=== PATIENT | female | born 1960 | race Caucasian/White ===

== ENCOUNTER 2018-11-29 05:20 | Observation (INO) ==
--- NOTE | 2018-11-22 08:33 | Anesthesiology Consultation ---
Date of Service November 22, 2018 Assessment & Plan (1) Encounter for pre-operative examination: Cardiology clearance 10/18/2018: "Breast reduction surgery is planned. Her functional level is excellent... There is no contraindication for electrocautery from a cardiac standpoint. Recommend to use on maintaining a 6 inch distance or more between the electrocautery tip with a grounding pad in the pacemaker site. Please limit the application of electrocautery from 1-2 seconds every 10 seconds. Or the pacemaker can be programmed appropriately before and after the surgical procedure by the [employer] customer field representative. Does not has a history of paroxysmal supraventricular tachycardia. Status post ablation for PSVT in 2009. Comp located by complete AV block and is device dependent." OR made aware of [employer] pacer and need for pacer rep AM DOS. *POSSIBLE DIFFICULT INTUBATION DUE TO SMALL ORAL OPENING* Chart Review Chart Review: Acceptable Risk for Surgery and Patient seen in Pre Admission Testing Teaching & Discussion Instructed NPO after midnight before surgery, except medications with 15 cc of water. Medication instructions provided according to the PAT guidelines. History Surgery Operation Date: 11/29/18 07:30 Proposed Procedures p Bilateral Reduction Mammoplasty; - Loan Ray MD s Abdominoplasty - Loan Ray MD Height/Weight Height: 5 ft 6 in Weight: 83.9 kg Allergies Allergy/AdvReac Type Severity Reaction Status Date / Time erythromycin base Allergy Unknown "EYE Verified 11/17/18 10:22 OINTMENT ONLY" - REDNESS AND SWELLING OF EYE latex Allergy Unknown CONTACT Verified 11/17/18 10:22 REACTION - SKIN REDNESS AND RASH Medications Home Medications Medication Instructions Recorded Confirmed Last Taken Collagen 1 tab PO DAILY 11/17/18 11/17/18 Unknown Muscle Relaxer 1 dose PO UD PRN 11/17/18 11/17/18 Unknown Zicam 1 dose UD PRN 11/17/18 11/17/18 Unknown cholecalciferol (vitamin D3) 1,000 unit PO QAM 11/17/18 11/17/18 11/17/18 [Vitamin D3] duloxetine 30 mg PO HS 11/17/18 11/17/18 11/16/18 ferrous sulfate [iron] 325 mg PO QAM 11/17/18 11/17/18 11/17/18 folic acid 1 mg PO QAM 11/17/18 11/17/18 11/17/18 lisinopril 5 mg PO QAM 11/17/18 11/17/18 11/17/18 meloxicam 15 mg PO QAM 11/17/18 11/17/18 11/17/18 omeprazole 20 mg PO QAM 11/17/18 11/17/18 11/17/18 Past Medical History Medical History Esophageal stricture S/P DILATION 2017 GERD (gastroesophageal reflux disease) History of high cholesterol History of pacemaker IMPLANTED 2009- DUAL CHAMBER, [employer] 2/2 COMPLETE HEART BLOCK PER CARDIO; LAST PACER CHECK= 09/07/18 History of skin cancer Hx of supraventricular tachycardia 2010 S/P ABLATION 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 Brother Family history of kidney cancer Past Surgical History Surgical History History of bilateral cataract extraction History of cardiac cath 2009= NO STENTS History of cardiac radiofrequency ablation 2/2 SVT (2009) -- CAUSED COMPLETE HEART BLOCK AND SUBSEQUENT PPM IMPLANTED ONE WEEK LATER History of colonoscopy History of dilation and curettage MULTIPLE History of hysterectomy History of laparoscopy 2/2 ECTOPIC History of pacemaker 2009 2/2 COMPLETE HEART BLOCK History of tonsillectomy and adenoidectomy Nausea and vomiting after administration of anesthetic agent Past Anesthesia History No Hx of Anesthesia Complications and No Family Hx of Anesthesia Complications "Slow to wake up/always the last one to leave same-day surgery" No h/o reintubation or unanticipated admission. History of PONV Yes (Has not had with more recent surgeries) Motion Sickness Screening History of Motion Sickness: No Social History Smoking Status: Former smoker tobacco type: cigarettes Do You Dip or Chew Tobacco: No Smoking End Date: HX SOCIAL SMOKING Hx Alcohol Use: Yes Alcohol type: hard liquor alcohol intake frequency: holidays/special occasions only Hx Substance Use: No substance use type: does not use Exercise / Class Metabolic Activity II 4-5 Yardwork/Stairs/Walk up hill (denies CP or SOB with stairs) Review of Systems Pt denies any recent chest pain, shortness of breath, palpitations, cough, fever or URI. "Just getting over a cold," no fever, treating with OTC cold meds. Physical Exam Vital Signs BP: 128/82 P: 76bpm SPO2: 99% RA T: 98.5 F R: 12 ENMT Mouth: + dental bridge (upper), + dental restorations (few caps on molars) and + small oral opening; no chipped teeth and no loose teeth Thyromental Distance: < 3.5 Finger Breadths (3) Mallampati Class: II Neck normal visual inspection and + limited neck extension (mildly) Respiratory normal respiratory effort Auscultation: lungs clear to auscultation bilaterally Cardiovascular Rate/Rhythm: regular rate and regular rhythm Heart Sounds: no murmur Vessels: no carotid bruit Extremities: no edema Testing Electrocardiogram Date: 11/06/18 Atrial sensed ventricular paced rhythm at 70 bpm with prolonged AV conduction. Stress Test Date: 11/14/12 Resting EF: 60-64% Stress echocardiogram is negative for inducible ischemia. Uninterpretable stress EKG due to repolarization changes of ventricular pacemaker. Functional capacity of 7.7 METS. Adequate cardiovascular stress. Normal blood pressure and heart rate response to exercise. Grade 1 diastolic dysfunction. Left atrium is normal size. Qualitative LVEF is normal. No LV segmental wall motion normalities. Other Testing Pacer Check 09/07/18 [employer]. Implanted 02/13/10, generator change 07/01/16. Longevity remainin years Mode: DDDR Pacin.8% Ventricular paced. Laboratory Results 11/22/18 09:24 11/22/18 09:24 PT 10.0 Seconds (9.0-12.0) 11/22/18 09:24 INR 1.0 (0.9-1.1) 11/22/18 09:24 APTT 26.6 Seconds (21.0-31.0) 11/22/18 09:24 *surgeon made aware of low WBC count
--- NOTE | 2018-11-22 08:55 | PAT Medication Instructions ---
Medication Instructions Date of Service November 22, 2018 Home Medications Collagen 1 tab PO DAILY Muscle Relaxer 1 dose PO UD PRN Zicam 1 dose UD PRN cholecalciferol (vitamin D3) 1,000 unit PO QAM duloxetine 30 mg PO HS ferrous sulfate [iron] 325 mg PO QAM folic acid 1 mg PO QAM lisinopril 5 mg PO QAM meloxicam 15 mg PO QAM omeprazole 20 mg PO QAM Restasis Eye Drops 1 gtt BID STOP taking 2 weeks before surgery Collagen 1 tab PO DAILY If surgery is within 2 weeks, stop taking as soon as possible. DO NOT take the morning of surgery Zicam 1 dose UD PRN cholecalciferol (vitamin D3) 1,000 unit PO QAM ferrous sulfate [iron] 325 mg PO QAM folic acid 1 mg PO QAM lisinopril 5 mg PO QAM Take morning of surgery With a small sip of water, OTHERWISE NOTHING TO EAT OR DRINK AFTER MIDNIGHT: omeprazole 20 mg PO QAM Restasis Eye Drops 1 gtt BID Take evening before surgery Zicam 1 dose UD PRN (if needed) duloxetine 30 mg PO HS Muscle Relaxer 1 dose PO UD PRN (if needed) Restasis Eye Drops 1 gtt BID Other Notes If you have any questions please call us at [phone] or [phone] or [phone] or [phone]
[2018-11-22 11:06] LABS: Basophils # (auto) 0.01 K/uL (0-0.2); Basophils % (auto) 0.3 %; Eosinophils # (auto) 0.13 K/uL (0-0.5); Eosinophils % (auto) 4.3 %; Hematocrit (blood only) 39.5 % (37-47); Immature Granulocytes # (auto) 0.01 K/uL (0.00-0.02); Immature Granulocytes % (auto) 0.3 %; Lymphocytes # (auto) 1.12 K/uL (1.2-3.4); Lymphocytes % (auto) 37.1 %; Mean Corpuscular Hgb Conc 32.9 g/dL (32-36); Mean Corpuscular Volume 90.4 fL (80-100); Monocytes # (auto) 0.21 K/uL (0.11-0.59); Neutrophils # (auto) 1.54 K/uL (1.4-6.5); Platelet Count 235 K/uL (130-400); RDW Coefficient of Variation 13.3 % (11.5-14.5); RDW Standard Deviation 44.1 fL (36.4-46.3); Red Blood Count 4.37 M/uL (4.2-5.4); White Blood Count 3.02 K/uL (4.8-10.8)
[2018-11-22 11:18] LABS: BUN Creatinine Ratio 15.5 (10-20); Calcium 8.9 mg/dl (8.5-10.1); Creatinine Clr Calc Pharmacy 64.4 ml/min; Est GFR (African American) 68.6; Est GFR (Non-African American) 59.2; Potassium 4.3 mmol/L (3.5-5.1)
[2018-11-22 11:20] LABS: Partial Thromboplastin Time 26.6 Seconds (21.0-31.0)
[2018-11-29] MEDS ORDERED: LR 15ML/HR IV SCH (06:00)
[2018-11-29] MEDS ORDERED: CEFAZOLIN 2000MG 2,000 MG/15 ML SYR IV SCH (06:00)
[2018-11-29] MEDS ORDERED: CISATRACURIUM BESYLATE IV SOLN 2 MG/ML 10 ML VIAL IV ONE (06:35)
[2018-11-29] MEDS ORDERED: DEXAMETHASONE SOD INJ 4 MG/ML VIAL ONE (06:35)
[2018-11-29] MEDS ORDERED: fentaNYL citrate 100 MCG/2 ML VIAL ONE ×5 (06:35→14:12)
[2018-11-29] MEDS ORDERED: ONDANSETRON INJ 2 MG/ML 2 ML VIAL ONE (06:35)
[2018-11-29] MEDS ORDERED: MIDAZOLAM HCL 1 MG/ML 2ML VIAL ONE (06:35)
[2018-11-29] MEDS ORDERED: ROCURONIUM BROMIDE 10 MG/ML 5 ML VIAL ONE (06:35)
[2018-11-29] MEDS ORDERED: HYDROmorphone INJ 2 MG/ML SYR/VIAL ONE (06:35)
[2018-11-29] MEDS ORDERED: GLYCOPYRROLATE 0.2 MG/ML VIAL ONE (06:35)
[2018-11-29] MEDS ORDERED: SUCCINYLCHOLINE CHLORIDE 20 MG/ML 10 ML VIAL ONE (06:35)
[2018-11-29] MEDS ORDERED: NEOSTIGMINE METHYLSULFATE 5 MG/5 ML SYR ONE (06:35)
[2018-11-29] MEDS ORDERED: LIDOCAINE HCL 2% 2 ML VIAL/AMP(20MG/ML) INFIL ONE (06:35)
[2018-11-29] MEDS ORDERED: ATROPINE SULFATE 0.1 MG/ML 10ML SYR IV PRN (06:36)
[2018-11-29] MEDS ORDERED: fentaNYL citrate 100 MCG/2 ML VIAL IV PRN (06:36)
[2018-11-29] MEDS ORDERED: PROMETHAZINE HCL 12.5 MG in SODIUM CHLORIDE 0.9% 50 ML IV PRN ×2 (06:36→16:01)
[2018-11-29] MEDS ORDERED: HYDROmorphone INJ 1 MG/ML SYRINGE IV PRN (06:36)
[2018-11-29] MEDS ORDERED: ePHEDrine sulfate 50 MG/ML AMP IV PRN (06:36)
[2018-11-29] MEDS ORDERED: ONDANSETRON INJ 2 MG/ML 2 ML VIAL IV PRN ×2 (06:36→16:01)
[2018-11-29] MEDS ORDERED: PHENYLEPHRINE 100MCG/ML 5ML SYR IV PRN (06:36)
[2018-11-29] MEDS ORDERED: ACETAMINOPHEN 1000 MG/100 ML IV IV ONE (06:47)
--- NOTE | 2018-11-29 07:04 | History & Physical Bridge Note ---
Date of Service November 29, 2018 History & Physical Bridge Note I have examined the patient, reviewed the History & Physical and in the interval since the performance of the History & Physical I have noted the following changes of clinical significance: recent vitreal detachment
[2018-11-29] MEDS ORDERED: EPINEPHrine INJ 1 MG/ML AMP ONE (07:11)
[2018-11-29] MEDS ORDERED: BUPIVACAINE 0.25% 30 ML VIAL ONE ×2 (07:12→09:32)
[2018-11-29] MEDS ORDERED: LIDOCAINE/EPINEPHRINE 1% 20 ML VIAL ONE ×2 (07:12→09:32)
[2018-11-29] MEDS ORDERED: LIDOCAINE HCL 1% 20 ML VIAL ONE (07:12)
[2018-11-29] MEDS ORDERED: KETAMINE HCL INJ 50 MG/ML 10 ML VIAL ONE (07:50)
[2018-11-29] MEDS ORDERED: PROPOFOL IV EMULSION 10 MG/ML 20 ML VIAL IV ONE ×2 (08:47→13:18)
[2018-11-29] MEDS ORDERED: CEFAZOLIN 2000MG 2,000 MG/15 ML SYR IV ONE (11:50)
--- NOTE | 2018-11-29 13:40 | Post Operative Brief Note ---
Immediate Post Op Note v1 Date of Surgery November 29, 2018 Pre & Post Diagnosis Operation Date: 11/29/18 07:30 Pre-Op Diagnosis: Symptomatic Bilateral Macromastia, Abdominal Pannus Post-Op Diagnosis: Symptomatic Bilateral Macromastia, Abdominal Pannus Procedure Operation Date: 11/29/18 07:30 Actual Procedures p Bilateral Reduction Mammoplasty;(Bilateral) - Loan Ray MD s Abdominoplasty(Not Applicable) - Loan Ray MD Surgeon Loan Ray MD Opera Singer Pippa Bradley PA-C Estimated Blood Loss 100 Findings Consistent with Post-Op Diagnosis Drains Becerril Catheter (LATEX FREE; 16 chadian 10 ml balloon) and Dusty-Garcia Drain (15 chadian round x4)
--- NOTE | 2018-11-29 14:31 | Operative Report ---
Post Operative Report Pre & Post Diagnosis Operation Date: 11/29/18 07:30 Pre-Op Diagnosis: Symptomatic Bilateral Macromastia, Abdominal Pannus Post-Op Diagnosis: Symptomatic Bilateral Macromastia, Abdominal Pannus Procedure Operation Date: 11/29/18 07:30 Actual Procedures p Bilateral Reduction Mammoplasty;(Bilateral) - Loan Ray MD s Abdominoplasty(Not Applicable) - Loan Ray MD Surgeon Loan Ray MD Concession Attendant Pippa Bradley PA-C Estimated Blood Loss 100 Findings Consistent with Post-Op Diagnosis Specimens left breast 637 g, right breast 637 g Drains NEFTALY x2 Anesthesia Type General Complications none Indications back, neck and shoulder pain, intertrigo due to macromastia desire for cosmetic abdominoplasty Description of Procedure The risks, benefits, and alternatives of the procedure were explained to the patient who agreed and signed consent. She was identified and marked in the preoperative holding area. She had no specific desire for a particular breast size following the procedure. She was brought to the operating room where she was positioned supine and placed under general anesthesia without incident. Becerril catheter was placed. SCDs were placed. Surgical site was prepped and draped sterilely. A time-out procedure was performed. I began with the left side. Markings were reassessed and a 7 cm pedicle was marked. 1% lidocaine with epinephrine was used to anesthetize the planned incisions. A 38 mm cookie cutter was used to circumscribe the nipple-areolar complex. The previously marked 7 cm pedicle was incised using a 15 blade scalpel and deepithelized. I began with the medial dissection of the pedicle using Peak Plasmablade. Cautery was used to incise through dermis and breast parenchyma down to the chest wall, taking care not to undermine the pedicle during dissection. A similar procedure was undertaken on the lateral aspect of the pedicle again taking care not to undermine. Lastly, the pedicle was dissected out superiorly using Peak Plasmablade and this was carried down to the chest wall as well. I then began with excision of the medial breast tissue followed by lateral aspect of the breast tissue and surrounding keyhole incision. A 15 blade scalpel was used to make the inframammary fold incision and Peak Plasmablade was used to deepen the incision through dermis and breast parenchyma. Dissection was then carried superiorly to the level of the superior incision. Superior incision was then incised using a 15 blade scalpel and again dissected using Peak Plasmablade. This was undertaken laterally and then around the keyhole portion of the incision. Care was taken to leave some fat on the lateral pectoralis fascia in order to protect the T4 intercostal nerve. Hemostasis was achieved with Peak Plasmablade. The specimen was passed off in its entirety for weighing. Additional resection was undertaken from the superior flap in order to facilitate closure of the breast and to provide the best shape. The total resection weight of the left breast was 637 grams. The wound was irrigated with saline and hemostasis was achieved with Peak Plasmablade. 0.25% Marcaine plain was used to anesthetize the incisions as well as the pectoralis fascia. A 15 Persian Matthew drain was brought out through a separate stab incision. The nipple-areolar complex was brought into the keyhole using 2-0 Vicryl deep dermal suture. The wound was closed first in a lateral to mid breast direction and then medial to mid breast direction using 2-0 Vicryl deep dermal sutures. Vertical limb was also approximated using 2-0 Vicryl deep dermals and the nipple-areolar complex was inset using 2-0 Vicryl deep dermal sutures. Next, the superficial dermal layer was closed using 2-0 PDO running Quill suture along the inframammary fold and 3-0 PDS interrupted dermal sutures along the vertical limb and nipple-areolar complex. Lastly 3-0 Monocryl running subcuticular suture was placed. A similar procedure was undertaken on the right side A small standing cutaneous deformity was noted on the right lateral breast, and this was excised during closure and tissue sent separately. Maximal excision weight 637 g on the right breast as well. Breasts were symmetric and nipple-areolar complexes were viable bilaterally following wound closure. Dermabond Prineo was applied along the inframammary fold and vertical limb and Dermabond was placed around the nipple-areolar complex. Preoperatively planned incision had been marked with mid portion of the transverse lower abdominal incision was marked 7 mm above the vulvar commissure and extended from anterior superior iliac spine bilaterally. Incision was made using a 15 blade scalpel to make the incision through skin and into the underlying dermis. The incision was deepened using Peak Plasmablade and was carried down to anterior abdominal wall. Flap was raised off of the anterior abdominal wall using Peak Plasmablade and achieving hemostasis throughout using Peak Plasmablade. Dissection was carried cephalad to the umbilicus. The umbilical incision was made using a 15 blade scalpel. I then split the lower abdominal flap up the midline to the umbilical incision and the umbilicus was carefully dissected out using Peak Plasmablade. The stalk remained viable throughout this procedure. Subsequent to this, this dissection was performed widely at the level of the umbilicus and then, a narrower dissection was performed above the umbilicus to the xiphoid process using Peak Plasmablade. No liposuction was performed as the flap was uniform and only about 2 cm in thickess and I did not want to create a contour irregularity. Once I was able to expose the rectus diastasis, plication was performed using 0 Prolene [id number] sutures, both superior and inferior to the umbilicus. This was reinforced using an 0 Prolene running suture, both superiorly and inferiorly. Once hemostasis was assured, the bed was flexed to facilitate closure. The upper abdominal skin flap was sutured under tension in the midline to the mons pubis. The skin flaps were then marked for resection, making sure that they were under adequate tension, but still a bit to facilitate wound closure. The flaps were removed using a 15 blade scalpel to make the incision, which was then deepened using The umbilical position was then marked in an inverted triangle position. 0.25% Marcaine plain was used to inject the rectus fascia. Wound was inspected one last time for hemostasis and 15-Persian Matthew drains were passed through separate stab incisions in the mons pubis and placed into the wound bed. Closure was then begun in a lateral to medial direction using 2-0 Vicryl Blanco's fascia sutures, 2-0 Vicryl deep dermal sutures, 2-0 PDO running Quill suture and 3-0 Monocryl subcuticular suture. The umbilical incision was made using a 15 blade scalpel and deepened with Peak Plasmablade. The umbilicus was identified and able to be brought through the incision. It was inset using 4-0 chromic half buried horizontal mattress sutures. It remained viable throughout. Dermabond Prineo was applied to the lower abdominal incision. Xeroform was packed into the umbilicus and placed around the drains. Dry dressings were applied followed by a surgical bra and abdominal binder. The procedure was tolerated well. The patient was awakened and transferred to the recovery room in satisfactory condition. Pippa Bradley PA-C was present and scrubbed throughout the procedure and was instrumental in providing retraction during dissection of the pedicle and assisting in wound closure. I attest to the content of the Intraoperative Record and any orders documented therein. Any exceptions are noted below.
[2018-11-29] MEDS ORDERED: METAXALONE 800 MG TABLET PO PRN (16:01)
[2018-11-29] MEDS ORDERED: OXYCODONE/ACETAMINOPHEN 5mg/325mg TAB PO PRN (16:01)
[2018-11-29] MEDS ORDERED: MoRPHine SULFATE 4 MG/ML 1 ML CARP\\VIAL IV PRN ×2 (16:01)
[2018-11-29] MEDS ORDERED: ACETAMINOPHEN 325 MG TAB PO PRN (16:01)
[2018-11-29] MEDS ORDERED: LORazepam 0.5 MG TAB PO PRN (16:01)
[2018-11-29] MEDS ORDERED: DiphenhydrAMINE HCL 50 MG/ML VIAL IV PRN (16:01)
--- NOTE | 2018-11-29 16:02 | Anesthesiology Progress Note ---
Date of Service November 29, 2018 Anesthesia Post Procedure Vital Signs Vital Signs: Temp Pulse Pulse Resp BP Pulse Ox 11/29/18 15:45 60 19 152/77 H 99 11/29/18 15:35 36.6 C 60 14 152/79 H 99 11/29/18 15:25 64 14 152/83 H 98 11/29/18 15:15 80 15 160/94 H 99 11/29/18 15:05 80 24 161/92 H 99 11/29/18 14:55 80 17 162/88 H 99 11/29/18 14:45 80 15 164/94 H 100 11/29/18 14:35 80 22 170/99 H 100 11/29/18 14:25 80 28 H 162/96 H 100 11/29/18 14:15 80 16 166/90 H 100 11/29/18 14:05 66 19 173/111 H 100 11/29/18 13:58 36.0 C L 80 15 168/114 H 100 11/29/18 05:45 36.6 C 68 18 148/78 H 99 Pain Intensity Bilateral Breast: Pain Intensity: 0 Abdomen: Pain Intensity: 3 Notes Mental Status: alert / awake / arousable Patient Amnestic to Procedure: Yes Nausea / Vomiting: adequately controlled Pain: adequately controlled Airway Patency, RR, SpO2: stable & adequate BP & HR: stable & adequate Hydration State: stable & adequate Anesthetic Complications: no major complications apparent and Pt Satisfied with anesthetic care Notes: Her pacemaker was interrogated in PACU.
[2018-11-29] MEDS: D5W AND 1/2NSS 1,000 ML IV SCH (16:32)
[2018-11-29] MEDS: CEFAZOLIN 2000MG 2,000 MG/15 ML SYR IV SCH (17:39)
[2018-11-29] MEDS: OXYCODONE/ACETAMINOPHEN 5mg/325mg TAB PO PRN (18:39)
[2018-11-29] MEDS: MoRPHine SULFATE 2 MG/ML CARP IV PRN (21:00)
[2018-11-29] MEDS ORDERED: DULOXETINE HCL 30 MG CAP PO SCH (21:00)
[2018-11-30] MEDS: CEFAZOLIN 2000MG 2,000 MG/15 ML SYR IV SCH (01:34)
[2018-11-30] MEDS: MoRPHine SULFATE 2 MG/ML CARP IV PRN (05:15)
[2018-11-30] MEDS: D5W AND 1/2NSS 1,000 ML IV SCH (05:15)
[2018-11-30] MEDS: OXYCODONE/ACETAMINOPHEN 5mg/325mg TAB PO PRN (07:32)
--- NOTE | 2018-11-30 08:06 | Surgery Progress Note ---
Date of Service November 30, 2018 Assessment & Plan (1) Breast hypertrophy: S/P bilateral breast reduction and abdominoplasty. POD#1. Breast drains removed. D/C home today, f/u in office tomorrow (2) Abdominal pannus: Subjective Patient resting comfortably in chair. Has good pain control. Physical Exam Vital Signs (Past 24 Hours): Last Vital Signs Temp 36.7 C 11/30/18 07:00 Pulse 83 11/30/18 07:00 Resp 16 11/30/18 07:00 BP 109/70 11/30/18 07:00 Pulse Ox 94 11/30/18 07:00 Constitutional: WD/WN, vitals as above no acute distress Skin: + incision (CDI, nipples viable. drains with serous/bloody output)
--- NOTE | 2018-11-30 08:10 | Anesthesiology Progress Note ---
Date of Service November 30, 2018 Anesthesia Post Procedure Vital Signs Vital Signs: Temp Pulse Pulse Pulse Resp BP BP 11/30/18 07:00 36.7 C 83 16 109/70 11/30/18 03:03 36.8 C 92 H 16 109/69 11/29/18 22:54 36.9 C 94 H 14 126/80 11/29/18 19:05 36.6 C 90 17 135/84 11/29/18 17:57 36.7 C 91 H 17 157/99 H 11/29/18 17:00 36.7 C 67 18 153/85 H 11/29/18 16:23 36.3 C L 80 17 150/86 H 11/29/18 16:00 36.3 C L 63 16 149/85 H 11/29/18 15:45 60 19 152/77 H 11/29/18 15:35 36.6 C 60 14 152/79 H 11/29/18 15:25 64 14 152/83 H 11/29/18 15:15 80 15 160/94 H 11/29/18 15:05 80 24 161/92 H 11/29/18 14:55 80 17 162/88 H 11/29/18 14:45 80 15 164/94 H 11/29/18 14:35 80 22 170/99 H 11/29/18 14:25 80 28 H 162/96 H 11/29/18 14:15 80 16 166/90 H 11/29/18 14:05 66 19 173/111 H 11/29/18 13:58 36.0 C L 80 15 168/114 H Pulse Ox 11/30/18 07:00 94 11/30/18 03:03 93 11/29/18 22:54 95 11/29/18 19:05 94 11/29/18 17:57 92 11/29/18 17:00 95 11/29/18 16:23 98 11/29/18 16:00 94 11/29/18 15:45 99 11/29/18 15:35 99 11/29/18 15:25 98 11/29/18 15:15 99 11/29/18 15:05 99 11/29/18 14:55 99 11/29/18 14:45 100 11/29/18 14:35 100 11/29/18 14:25 100 11/29/18 14:15 100 11/29/18 14:05 100 11/29/18 13:58 100 Pain Intensity Bilateral Breast: Pain Intensity: 0 Notes Mental Status: alert / awake / arousable and participated in evaluation Patient Amnestic to Procedure: Yes Nausea / Vomiting: adequately controlled Pain: adequately controlled Airway Patency, RR, SpO2: stable & adequate BP & HR: stable & adequate Hydration State: stable & adequate Anesthetic Complications: no major complications apparent and Pt Satisfied with anesthetic care
[2018-11-30] MEDS ORDERED: PANTOprazole 40 MG TAB PO SCH (09:00)
[2018-11-30] MEDS ORDERED: FOLIC ACID 1 MG TAB PO SCH (09:00)
[2018-11-30] MEDS ORDERED: LISINOPRIL 5 MG TAB PO SCH (09:00)
[2018-11-30] MEDS ORDERED: MULTIVITAMIN TAB PO SCH (09:00)
[2018-11-30] MEDS ORDERED: FERROUS SULFATE 325 MG TAB PO SCH (09:00)
--- NOTE | 2018-11-30 16:20 | Discharge Summary ---
Date of Service November 30, 2018 Admission HPI Per Admitting Provider per admission H&P Admission Exam Per Admitting Provider per admission H&P Principal Diagnosis breast hypertrophy and abdominal pannus Discharge Exam Constitutional WD/WN, vitals as above no acute distress Skin + incision (CDI, nipples viable. drains with serous/bloody output) Discharge Data Allergies Allergy/AdvReac Type Severity Reaction Status Date / Time erythromycin base Allergy Unknown "EYE Verified 11/29/18 05:38 OINTMENT ONLY" - REDNESS AND SWELLING OF EYE latex Allergy Unknown CONTACT Verified 11/29/18 05:38 REACTION - SKIN REDNESS AND RASH Procedures Performed Operation Date: 11/29/18 07:30 Actual Procedures p Bilateral Reduction Mammoplasty;(Bilateral) - Loan Ray MD s Abdominoplasty(Not Applicable) - Loan Ray MD Hospital Course (1) Breast hypertrophy: Patient presented to [facility] with history of bilateral breast hypertrophy and abdominal pannus. She was taken to the OR an underwent bilateral breast reduction and abdominoplasty. There were no intraoperative complications. On POD#1, the patient was feeling well and had good pain control. She was ambulating and tolerating a regular diet. On exam, her vital signs were stable and incision clean, dry and intact. Her breast drains were removed. Patient was discharged home. (2) Abdominal pannus: Total Time Total Time Spent Total Time Spent (In Minutes): 10 Total Time Includes: Examination of the Patient, Discharge Planning and Medication Reconciliation Discharge Plan Discharge Items Patient Disposition: Home - Self-Care Reason For Visit: Symptomatic Macromastia, Lipodystrophy Discharge Diagnosis: s/p bilateral breast reduction and abdominoplasty Discharge Goals: Decrease discomfort Activity: As commented below Non-emergency contact: Surgeon Call non-emergency contact if: your pain is not controlled, you have a fever, your wound has increased redness and your wound has increased drainage Follow-up/Referrals: Smith Melendez DO [Primary Care Provider] - Diet: Regular Addtl Provider Instructions: ACTIVITY RECOMMENDATIONS: __Normal activities _x_No bending, lifting or straining. Limit raising arms to 90 degrees _x_No driving __Driving allowed when you are off pain medications _x_Walking permitted __You should have help at home for ___ days DRESSINGS: __No dressings required _x_Keep dressings dry/in place until first office visit __Remove dressings ___ and leave dressings off __Apply ice ___ days __Remove dressings and reapply garment __Apply antibiotic ointment (Bacitracin, Neosporin, etc) to wounds 3-4 times/day for 10 days BATHING: _x_Keep dressings dry _x_Sponge bathing permitted __Showering permitted _x_No swimming, hot tubs or soaking in a tub MEDICATIONS: Resume previous medications unless instructed otherwise by your surgeon. _x_Do not use aspirin, Motrin, Advil or Ibuprofen as these may promote bleeding. Please use Tylenol. _x_Prescription(s) provided: Pain medication was provided at your last office visit OTHER INSTRUCTIONS: _x_Record drain output 2-3 times per day SPECIAL CARE INSTRUCTIONS: * It is normal to have a mild fever after surgery. If your temperature is higher than 101.5 degrees F, please call the office at [phone]. * Constipation is a typical side effect of pain medication. An [id number] stool softener will help relieve this. * Leaking around surgical drains may occur and should not cause concern. Sometimes these drains become clogged. If this happens, remove the bulb and milk the clot out of the tube, then replace the bulb. * Drainage from wounds after liposuction is normal and should be expected. Garments will become soiled. You should protect furniture and bedding. This drainage should mostly subside within 2-3 days. Leave garments in place unless instructed to remove them. * If you have unusual drainage from a wound or are concerned you have an infection or have any questions or concerns, please call the office at [phone]. FOLLOW UP VISIT: If not already scheduled, please call the office, , when you return home after surgery to schedule an appointment to be seen in __1_ days. Prescriptions: Continued ferrous sulfate [iron] 325 mg (65 mg iron) Tablet 325 mg PO QAM RF: 0 folic acid 1 mg Tablet 1 mg PO QAM RF: 0 lisinopril 5 mg Tablet 5 mg PO QAM RF: 0 cholecalciferol (vitamin D3) [Vitamin D3] 1,000 unit Capsule 1,000 unit PO QAM RF: 0 duloxetine 30 mg Capsule,Delayed Release(Dr/Ec) 30 mg PO HS RF: 0 omeprazole 20 mg Capsule,Delayed Release(Dr/Ec) 20 mg PO QAM RF: 0 metaxalone [Skelaxin] 800 mg Tablet 400 mg PO TID PRN (Reason: Muscle Spasm) RF: 0 Discontinued meloxicam 15 mg Tablet 15 mg PO QAM RF: 0 Collagen 1 tab PO DAILY RF: 0 Stand-Alone Forms: [facility], [facility]ioid Pain Management [facility]/Other Patient Handouts: Surgery Breast Reduction, Reduction Breast Dc Discharge Orders: Discharge Order (Routine); Ordered 11/30/18 Ordered By: Pippa Bradley Admission Data Admit Date/Time: 11/29/18 14:08 Attending Provider: Loan Ray Admit Provider: Loan Ray Primary Care Provider: Smith Melendez Service: Surgical Services Other Interventions: Discharge Summary Assessment (RN) Last Done: 11/30/18 10:05 Pending Studies at Discharge: Yes Studies:: pathology DC Date/Time DO NOT enter until pt leaves facility: 11/30/18 11:59
== END 2018-11-30 11:59 | disposition home or self-care (01) ==
LOC: 3W 05:20 → ASU 05:20